=== PATIENT | male | born 1990 | race Caucasian/White ===

== ENCOUNTER 2018-01-17 11:43 | Emergency (ER) | payer OTHER ==
--- NOTE | 2018-01-17 14:00 | ED PDOC ---
HPI: Chest Pain Time Seen by Provider: 01/17/18 11:52 Chief Complaint (Nursing): Chest Pain Chief Complaint (Provider): Chest Pain History Per: Patient History/Exam Limitations: no limitations Onset/Duration Of Symptoms: Hrs (this morning) Exacerbating Factors: Movement Additional Complaint(s): 27 years old male with history of CHF and carpal tunnel presents to the ED for evaluation of left arm pain onset this morning. Patient states at one point pain was radiating from thumb to shoulder but now it is more around thumb. He feels his arm is swollen and reports sleeping with brace for carpal tunnel. Patient states he has heart problems and is afraid these symptoms would be a sign of heart attack. He denies any fever, trauma or rash. PMD: Dr. Brandt Covered Button Maker: Dr. Rothman Past Medical History Reviewed: Historical Data, Nursing Documentation, Vital Signs Vital Signs: Last Vital Signs Temp 97.6 F 01/17/18 18:15 Pulse 60 01/17/18 18:15 Resp 18 01/17/18 18:15 BP 105/57 L 01/17/18 18:15 Pulse Ox 96 01/17/18 18:15 - Medical History PMH: CHF Other PMH: Carpal tunnel - Surgical History Surgical History: No Surg Hx - Family History Family History: States: Unknown Family Hx - Social History Current smoker - smoking cessation education provided: No Alcohol: None Drugs: Denies - Allergies Allergies/Adverse Reactions: Allergies Allergy/AdvReac Type Severity Reaction Status Date / Time No Known Allergies Allergy Verified 01/17/18 11:55 Wells Criteria for PE - Wells Criteria for Pulmonary Embolism Clinical Signs and Symptoms of DVT: No P.E is #1 Diagnosis, or Equally Likely: No Heart Rate >100: No Immobilization at least 3 days;Surgery previous 4 weeks: No Previous, objectively diagnosed PE or DVT: No Hemoptysis: No Malignancy w/treatment within 6 months, or palliative: No Total Score: 0 Review of Systems ROS Statement: Except As Marked, All Systems Reviewed And Found Negative Constitutional: Negative for: Fever Musculoskeletal: Positive for: Arm Pain (Left) Skin: Negative for: Rash Physical Exam - Reviewed Nursing Documentation Reviewed: Yes Vital Signs Reviewed: Yes - Physical Exam Appears: Positive for: Non-toxic, No Acute Distress Head Exam: Positive for: ATRAUMATIC, NORMOCEPHALIC Neck: Negative for: Normal (tenderness to palpation along right side of the neck paraspinal.) Cardiovascular/Chest: Positive for: Regular Rate, Rhythm. Negative for: Murmur Respiratory: Positive for: Normal Breath Sounds. Negative for: Respiratory Distress Gastrointestinal/Abdominal: Positive for: Normal Exam, Soft. Negative for: Tenderness Back: Negative for: Other (Tenderness to spine) Extremity: Positive for: Tenderness (on palpation to posterior shoulder and lateral wrist.) Neurologic/Psych: Positive for: Alert, Oriented (x3) - Laboratory Results Result Diagrams: 01/17/18 14:36 01/17/18 14:36 - ECG O2 Sat by Pulse Oximetry: 98 (RA) Pulse Ox Interpretation: Normal Medical Decision Making Medical Decision Making: Time: 1356 --Pain to left forearm and left neck with mild swelling to dorsal left hand. --Pain controlled --Low suspicion for cardiac etiology --Physical exam was limited due to patient refusing to move her shoulder down because it is too painful. Initial Plan: --Venous Blood Gas --EKG --BMP --Troponin I --CBC --PTT/PT --Cervical Spine Complete X-Ray --Chest X-Ray --Toradol 40 mg IVP --Reassess patient 1444 Chest X-Ray FINDINGS: LUNGS: Poor inspiration low lung volumes, crowded bronchovascular markings and minor bibasilar atelectasis. PLEURA: No significant pleural effusion identified, no pneumothorax apparent. CARDIOVASCULAR: Normal. OSSEOUS STRUCTURES: No significant abnormalities. VISUALIZED UPPER ABDOMEN: Normal. OTHER FINDINGS: None. IMPRESSION: Poor inspiration low lung volumes, crowded bronchovascular markings and minor bibasilar atelectasis. 1451 Cervical Spine X-Ray FINDINGS: BONES: Alignment maintained. No fracture. Dens appears intact so far as can be seen within limitation of this exam There appears to be some very minimal right- sided C5-C6 foraminal narrowing. Probable artifactual narrowing of the left- sided C3-C4 and C4-C5 exit foramina due to steep oblique patient positioning DISC SPACES: There appears to be minor posterior osteophyte formation seen at the C5-C6, C6- C7 and to a lesser degree C4-C5 levels. SOFT TISSUES: Normal. No prevertebral soft tissue swelling. OTHER FINDINGS: None. IMPRESSION: Slightly limited study demonstrating no acute fractures. Minor degenerative spondylosis. 1730 Re-eval Labs reviewed: no significant clinical abnormality including (-) troponin. Patient was observed in ED for nearly 6 hours without return of chest pain. HEART score = 0. PERC score = 0. Repeat troponin sent and pt to be informed if results are abnormal. Discussed findings with the family and pt and discussed plan of treatment. 18:50 repeat troponin negative. Pt contacted on his cell phone ([phone]) and informed of result. Pt states he remains symptoms free. Scribe Attestation: Documented by Charity Garzon and Morenita Goodson, acting as scribes for Amalia Chavez MD. Provider Scribe Attestation: All medical record entries made by the Scribe were at my direction and personally dictated by me. I have reviewed the chart and agree that the record accurately reflects my personal performance of the history, physical exam, medical decision making, and the department course for this patient. I have also personally directed, reviewed, and agree with the discharge instructions and disposition. Disposition - Clinical Impression Clinical Impression: Atypical chest pain - Patient ED Disposition Is Patient to be Admitted: No Counseled Patient/Family Regarding: Studies Performed, Diagnosis, Need For Followup - Disposition Disposition Time: 17:30 Condition: IMPROVED Additional Instructions: Follow up with your primary doctor in one week. Return to the emergency department if symptoms worsen or if new symptoms develop such as chest pain, difficulty breathing, dizziness, weakness, nausea/vomiting, or other symptoms. Instructions: Chest Pain That Is Not Caused by the Heart (DC) Forms: [employer] ([place]) Print Language: MALAGASY
[2018-01-17 14:44] LABS: VENOUS BLOOD GAS PCO2 64 mmHg (40-60); VENOUS BLOOD GAS PO2 14 mm/Hg (30-55); VENOUS BLOOD PH 7.31 (7.32-7.43)
--- NOTE | 2018-01-17 14:45 | RAD ---
Date of service: 01/17/2018 HISTORY: possible admission COMPARISON: No prior. FINDINGS: LUNGS: Poor inspiration low lung volumes, crowded bronchovascular markings and minor bibasilar atelectasis. PLEURA: No significant pleural effusion identified, no pneumothorax apparent. CARDIOVASCULAR: Normal. OSSEOUS STRUCTURES: No significant abnormalities. VISUALIZED UPPER ABDOMEN: Normal. OTHER FINDINGS: None. IMPRESSION: Poor inspiration low lung volumes, crowded bronchovascular markings and minor bibasilar atelectasis.
[2018-01-17 14:48] LABS: BASO % 0.3 % (0.0-2.0); EOS # 0.2 K/uL (0.0-0.7); EOS % 1.7 % (0.0-4.0); HEMOGLOBIN 17.8 g/dL (12.0-18.0); LYMPH # 1.4 K/uL (1.0-4.3); LYMPH % 15.1 % (20.0-40.0); MEAN CELL VOLUME 83.4 fl (80.0-94.0); MEAN CORPUSCULAR HEMOGLOBIN 28.4 pg (27.0-31.0); MEAN PLATELET VOLUME 11.1 fl (7.2-11.7); MONO # 0.5 K/uL (0.0-0.8); MONO % 4.9 % (0.0-10.0); NEUT # 7.3 K/uL (1.8-7.0); NRBC % 0.6 % (0.0-0.0); RBC 6.28 Mil/uL (4.40-5.90); RED CELL DISTRIBUTION WIDTH 13.9 % (11.5-14.5); WHITE BLOOD COUNT 9.3 K/uL (4.8-10.8)
--- NOTE | 2018-01-17 14:53 | RAD ---
Date of service: 01/17/2018 PROCEDURE: Cervical Spine Radiographs. Note that the odontoid is partially obscured by overlying occiput in the open-mouth projection. HISTORY: Pain. COMPARISON: None. FINDINGS: BONES: Alignment maintained. No fracture. Dens appears intact so far as can be seen within limitation of this exam There appears to be some very minimal right-sided C5-C6 foraminal narrowing. Probable artifactual narrowing of the left-sided C3-C4 and C4-C5 exit foramina due to steep oblique patient positioning DISC SPACES: There appears to be minor posterior osteophyte formation seen at the C5-C6, C6-C7 and to a lesser degree C4-C5 levels. SOFT TISSUES: Normal. No prevertebral soft tissue swelling. OTHER FINDINGS: None. IMPRESSION: Slightly limited study demonstrating no acute fractures. Minor degenerative spondylosis.
[2018-01-17 15:04] LABS: BLOOD UREA NITROGEN 12 mg/dl (9-20); CALCIUM 9.8 mg/dL (8.4-10.2); GFR NON-AFRICAN AMERICAN > 60
[2018-01-17 15:12] LABS: PROTHROMBIN TIME 10.7 Seconds (9.8-13.1)
[2018-01-17 15:15] LABS: PARTIAL THROMBOPLASTIN TIME 32.7 Seconds (25.6-37.1)
[2018-01-17 16:46] VITALS: RESP 18
--- NOTE | 2018-01-17 17:12 | CARD ---
APPROVED REPORT Date of service: 01/17/2018 <Conclusion> Sinus bradycardia with sinus arrhythmia Incomplete right bundle branch block Minimal voltage criteria for LVH, may be normal variant Nonspecific T wave abnormality Abnormal ECG
[2018-01-17 18:15] VITALS: BP 105/57; PULSE 60; TEMP 97.6
[2018-01-17 18:53] VITALS: O2SAT 98
--- NOTE | 2018-01-18 09:27 | CARD ---
APPROVED REPORT Date of service: 01/17/2018 EKG Measurement Heart [id number] <Conclusion> Sinus bradycardia T wave abnormality, consider inferior ischemia Abnormal ECG
== END 2018-01-17 18:21 | disposition home or self-care (01) ==
LOC: H.ER 11:43
DX: R07.89 Other chest pain (principal)
CPT/HCPCS: 71045; 72052; 80048; 82803; 82948; 84484; 85025; 85610; 85730; 93005; 96374; 99283; J1885